=== PATIENT | female | born 1990 | race Caucasian/White ===

== ENCOUNTER 2019-05-21 11:52 | Observation (INO) | payer OTHER, SELFPAY ==
[2019-05-21] VITALS (12 sets, daily range): BP systolic 78–136; BP diastolic 38–78; PULSE 60–104; RESP 12–20; TEMP 36.6–36.8; O2SAT 95–100
--- NOTE | 2019-05-21 12:05 | W.ED.GENAD ---
Discharge Plan Discharge Details Chief Complaint: Abd Prob Attending Provider: Patricia Martinez Primary Care Provider: Citlali Clement ED Provider: Cheryl Lepe Medical Decision Making Roseanne June is a 28-year-old woman without reported history of major medical problems who presented to the emergency department with abdominal pain since last night. On exam patient is well and nontoxic appearing. Benign cardiopulmonary exam. Focal right lower quadrant tenderness to palpation with positive Rovsing sign. No peritoneal signs. Concern for possible appendicitis versus other. Plan for screening labs, CT abdomen/pelvis, UA, IV fluid hydration. Patient declines pain medication at this time. CT shows appendicitis per radiology and my read. Dr. Martinez of surgery consulted, will take patient to the operating room. Clinical impression: Appendicitis Disposition: [facility] inpatient Medical Records Medical records reviewed: Yes I reviewed the patient's medical records. Imaging Data Radiologic Study: Attestation: I personally reviewed and interpreted this imaging study as follows: Radiologist's impression: EXAM: CT ABDOMEN AND PELVIS W CLINICAL HISTORY: RLQ pain TECHNIQUE: Imaging Protocol: Axial computed tomography images with coronal and sagittal reformatted images were created and reviewed CONTRAST MATERIAL: Intravenous: Omnipaque 350 Contrast volume:100 mL contrast route:IV - Oral: No COMPARISON: No exams were available for comparison FINDINGS: ABDOMEN: Lung Bases: Normal where visualized. Liver: Normal density. No measurable mass. The portal, superior mesenteric and splenic veins are patent. Gallbladder and biliary tract: No radiodense calculus or dilation. Pancreas: Normal density, no abnormal calcifications or inflammatory process. Spleen: Normal. Kidneys: Normal size, contour and axis. No radiodense stones or obstructive uropathy. No masses seen. Adrenal glands: No masses seen. Abdominal Aorta: Abdominal portion non-dilated. PELVIS: Bladder: Symmetric distention, no gross wall thickening. Bowel: No obstruction or bowel wall thickening. The appendix is distended to 9 millimeters in diameter (series 5, image 582). It is fluid-filled. There is high-density material seen in the appendix which may represent an appendicolith. There is mild infiltration of the surrounding soft tissues. No focal fluid collection is seen to suggest an abscess. There is no pneumoperitoneum. Peritoneal cavity: No ascites, collection or mesenteric inflammatory response. Bones: Within normal limits. Reproductive organs: Within normal limits. Lymph nodes: Unremarkable. Impression: Findings consistent with acute appendicitis. No abscess or free air. Lab Data Lab results reviewed: Yes I reviewed the patient's lab results. Labs: Laboratory Tests Range/Units 05/21/19 05/21/19 05/21/19 12:15 12:30 12:30 WBC (4.4-10.8) k/cumm 6.38 RBC (4.00-5.20) m/cumm 4.74 Hgb (12.0-15.5) g/dL 13.6 Hct (36.0-46.0) % 40.9 MCV (80-95) fL 86.3 MCH (27.0-33.0) pg 28.7 MCHC (32.0-36.0) g/dL 33.3 RDW (11.7-14.6) % 13.8 Plt Count (130-400) x1000/uL 315 MPV (8.0-11.0) fL 11.5 H Immature Gran % 0.2 Neutrophils % 67.1 Lymphocytes % 22.1 Monocytes % 9.7 Eosinophils % 0.6 Basophils % 0.3 Absolute Neutrophils (1.2-6.7) k/cumm 4.28 Absolute Lymphocytes (1.2-3.4) k/cumm 1.41 Absolute Monocytes (0.11-0.7) k/cumm 0.62 Absolute Eosinophils (0.0-0.7) k/cumm 0.04 Absolute Basophils (0.0-0.2) k/cumm 0.02 Sodium (136-145) mmol/L 142 Potassium (3.5-5.1) mmol/L 3.2 L Chloride (98-107) mmol/L 106 Carbon Dioxide (21.0-32.0) mmol/L 27.0 Anion Gap (3-11) mmol/L 9.0 BUN (7-18) mg/dL 7 Creatinine (0.55-1.02) mg/dL 0.75 Estimated GFR/1.73 m2 (mL/min/1.73m2) >= 60.00 Glucose (74-106) mg/dL 85 Calcium (8.5-10.1) mg/dL 8.9 Total Bilirubin (0.2-1.0) mg/dL 0.3 AST (15-37) U/L 16 ALT (14-59) U/L 22 Alkaline Phosphatase (46-116) U/L 75 Total Protein (6.4-8.2) g/dL 7.3 Albumin (3.4-5.0) g/dL 3.5 Lipase (73-393) U/L 85 Beta HCG, Quant (1-3) mIU/mL < 1 L Urine Color (Yellow) Yellow Urine Clarity (Clear) Clear Urine pH (5-8) 7.0 Ur Specific [place] (1.005-1.025) 1.010 Urine Protein (Negative) mg/dL Negative Urine Ketones (Negative) mg/dL Negative Urine Blood (Negative) Trace-intact H Urine Nitrite (Negative) Negative Urine Bilirubin (Negative) Negative Urine Urobilinogen (Up TO 0.2) EU/dL 0.2 Ur Leukocyte Esterase (Negative) Negative Urine RBC (0-2) HPF 0-2 Urine WBC (0-5) HPF Negative Ur Epithelial Cells (Negative) HPF Many Urine Crystals (Negative) HPF Negative Urine Bacteria (Negative) HPF Few Urine Casts (Negative) LPF Negative Urine Mucus (Negative) Negative Ur Culture Indicated? No/sq. contamination Urine Glucose (Negative) mg/dL Negative HPI General Mode of arrival: ambulatory. Date/Time Provider Initiated Documentation: 05/21/19 12:05. Limitations to Documentation: no limitations. Information obtained by: patient, RN notes reviewed and old records reviewed. HPI Narrative: Roseanne June is a 28-year-old woman with out reported history of major medical problems presenting to the emergency department with abdominal pain. Patient reports that last night she had pain across her lower abdomen. Patient reports that pain has continued today, but seems improved this morning from last night. Patient reports that her pain now seems localized to the right lower quadrant. Patient reports nothing makes pain better or worse. She reports that she was nauseous earlier today, but has had no vomiting or diarrhea, denies fever, constipation, rash, shortness of breath, cough, numbness, weakness, rash, dysuria. Patient reports that she has had decreased appetite since onset of pain last night. Patient reports she has a history of 6 years ago, no other intra-abdominal surgery. Was previously well in her usual state of health. Last meal was last night, patient drank water at 7 AM this morning, no other p.o. intake today. Related Data Home Medications Medication Instructions Recorded Confirmed Unknown [No Known Home Meds] 07/17/14 07/17/14 Allergies Allergy/AdvReac Type Severity Reaction Status Date / Time No Known Allergies Allergy Unverified 05/21/19 11:57 General Stated Complaint: Abd Prob NAM: 3 Review of Systems Narrative: Constitutional: denies fevers Eyes: denies eye pain ENT: denies ear pain, dental pain, sore throat Cardiovascular: denies chest pain Respiratory: denies SOB, cough GI: denies vomiting, diarrhea, reports abdominal pain, nausea : denies flank pain, dysuria MSK: denies back pain, neck pain, arthralgias, myalgias Skin: denies rash Neuro: denies headaches, numbness, weakness PFSH Surgical History (Updated 05/21/19 @ 14:36 by Patricia Martinez MD) H/O tubal ligation (Chronic) S/P section (Acute) Social History Smoking/Tobacco Use Status: Current every day Tobacco Type: cigarettes Alcohol Intake: never Drug use: Never Substance use type: does not use Do you feel safe at home: Yes Do you feel safe in your relationship?: Yes Exam Narrative Exam Narrative: Constitutional: well and [id number], pleasant, conversing normally HENT: head atraumatic/normocephalic/normal inspection, mucous membranes moist Eyes: conjunctiva normal, sclera normal, pupils 3mm b/l Neck: no stridor, normal ROM, trachea midline Chest: normal inspection Resp: normal work of breathing, LCTAB Cardio: normal rate, normal rhythm, no murmur appreciated GI: abdomen soft, focal tenderness to palpation right lower quadrant with positive Rovsing's sign, no rebound, no guarding, non-distended Back: normal inspection, no rash Skin: warm, dry, normal color, no rash Neuro: alert, not altered, grossly non-focal, normal tone Ext: no edema, no posterior calf tenderness to palpation Psych: normal mood, normal affect, normal behavior Course Vital Signs Vital signs: Vital Signs Temperature 36.8 C 05/21/19 11:54 Pulse 104 H 05/21/19 11:54 Respiratory Rate 14 05/21/19 11:54 Blood Pressure 136/78 05/21/19 11:54 Pulse Oximetry 99 05/21/19 11:54 Temperature 36.8 C 05/21/19 11:54 Temperature Source Temporal Artery Scan 05/21/19 11:54 Pulse 104 H 05/21/19 11:54 Respiratory Rate 14 05/21/19 11:54 Respiratory Effort Non-Labored 05/21/19 11:56 Blood Pressure 136/78 05/21/19 11:54 Blood Pressure Position Sitting 05/21/19 11:54 Pulse Oximetry 99 05/21/19 11:54 Oxygen Delivery Method Room Air 05/21/19 11:54 Oxygen Flow Rate 0 05/21/19 11:54 Pain Level 3 05/21/19 11:54
[2019-05-21 12:18] LABS: Bilirubin Negative (Negative); Blood Trace-intact (Negative); Clarity Clear (Clear); Glucose Negative (Negative); Ketones Negative (Negative); Leukocyte Esterase Negative (Negative); Nitrite Negative (Negative); Urobilinogen 0.2 EU/dL (Up TO 0.2)
[2019-05-21] MEDS: Normal Saline 1,000 ML 1000 ML IV (12:24)
[2019-05-21 12:28] LABS: Bacteria Few HPF (Negative); C & S Indicated? No/Sq. Contamination; Casts Negative LPF (Negative); Crystals Negative HPF (Negative); Epithelial Cells Many HPF (Negative); Mucus Negative (Negative); RBC 0-2 HPF (0-2); WBC Negative HPF (0-5)
[2019-05-21 12:41] LABS: Abs Immature Grans 0.01 k/cumm (0.0-0.09); Absolute Basophil Count 0.02 k/cumm (0.0-0.2); Absolute Eosinophil Count 0.04 k/cumm (0.0-0.7); Absolute Lymphocyte Count 1.41 k/cumm (1.2-3.4); Absolute Monocyte Count 0.62 k/cumm (0.11-0.7); Absolute Neutrophil Count 4.28 k/cumm (1.2-6.7); Basophils % 0.3; Eosinophils % 0.6; HCT 40.9 % (36.0-46.0); HGB 13.6 g/dL (12.0-15.5); Immature Grans % 0.2; Lymphocytes % 22.1; Mean Corp. HGB Concentration 33.3 g/dL (32.0-36.0); Mean Corpuscular Hemoglobin 28.7 pg (27.0-33.0); Mean Corpuscular Volume 86.3 fL (80-95); Mean Platelet Volume 11.5 fL (8.0-11.0); Monocytes % 9.7; Neutrophils % 67.1; Platelet Count 315 x1000/uL (130-400); RBC 4.74 m/cumm (4.00-5.20); RBC Distribution Width 13.8 % (11.7-14.6); White Blood Cell Count 6.38 k/cumm (4.4-10.8)
[2019-05-21 13:03] LABS: ALT 22 U/L (14-59); AST 16 U/L (15-37); Albumin 3.5 g/dL (3.4-5.0); Alkaline Phosphatase 75 U/L (46-116); BUN 7 mg/dL (7-18); Bilirubin, Total 0.3 mg/dL (0.2-1.0); CREATININE 0.75 mg/dL (0.55-1.02); Calcium 8.9 mg/dL (8.5-10.1); Chloride 106 mmol/L (98-107); Glucose 85 mg/dL (74-106); Lipase 85 U/L (73-393); Potassium 3.2 mmol/L (3.5-5.1); Sodium 142 mmol/L (136-145); Total Protein 7.3 g/dL (6.4-8.2)
[2019-05-21 13:06] LABS: HCG Quant, Pregnancy < 1 mIU/mL (1-3)
--- NOTE | 2019-05-21 13:25 | DI.CT_ITS ---
EXAM: CT ABDOMEN AND PELVIS W CLINICAL HISTORY: RLQ pain TECHNIQUE: Imaging Protocol: Axial computed tomography images with coronal and sagittal reformatted images were created and reviewed CONTRAST MATERIAL: Intravenous: Omnipaque 350 Contrast volume:100 mL contrast route:IV - Oral: No COMPARISON: No exams were available for comparison FINDINGS: ABDOMEN: Lung Bases: Normal where visualized. Liver: Normal density. No measurable mass. The portal, superior mesenteric and splenic veins are peña nt. Gallbladder and biliary tract: No radiodense calculus or dilation. Pancreas: Normal density, no abnormal calcifications or inflammatory process. Spleen: Normal. Kidneys: Normal size, contour and axis. No radiodense stones or obstructive uropathy. No masses seen. Adrenal glands: No masses seen. Abdominal Aorta: Abdominal portion non-dilated. PELVIS: Bladder: Symmetric distention, no gross wall thickening. Bowel: No obstruction or bowel wall thickening. The appendix is distended to 9 millimeters in diamete r (series 5, image 582). It is fluid-filled. There is high-density material seen in the appendix whi ch may represent an appendicolith. There is mild infiltration of the surrounding soft tissues. No f ocal fluid collection is seen to suggest an abscess. There is no pneumoperitoneum. Peritoneal cavity: No ascites, collection or mesenteric inflammatory response. Bones: Within normal limits. Reproductive organs: Within normal limits. Lymph nodes: Unremarkable. Impression: Findings consistent with acute appendicitis. No abscess or free air. The findings were discussed with Dr. Cheryl Lepe of the Emergency Department on the date of the exami nation. DATA REPOSITORY: All CT scans at this facility are submitted to the National Radiology Data Registry (NRDR) Dose Index Registry (DIR) with the [employer] (ACR). RADIATION OPTIMIZATION: All CT scans at this facility use at least one of these dose optimization te chniques: automated exposure control; mA and/or kV adjustment per patient size (includes targeted exa ms where dose is matched to clinical indication); or iterative reconstruction.
[2019-05-21] MEDS: Omnipaque 350 MG/ML 100 ML BTL IV (13:43)
--- NOTE | 2019-05-21 14:32 | HPE_ITS ---
Date of service: 05/21/19 Time of Service: 14:33 Assessment and Plan Assessment and plan (1) Acute appendicitis: Status: Acute Assessment and plan: A\\28-year-old female with acute appendicitis on CT s can. She has had pain since 8:00 last night. She has had no nausea or vomiting and no diarrhea. P\\ Laparoscopic Appendectomy Risks, benefits and complications have been reviewed. Complications include but are not limited to bleeding, infection, injury to adjacent bowel, abscess formation, staple line leak, inability to do the procedure laparoscopically and adverse reaction to the medications. Questions were entertained and answered to their satisfaction and they wished to proceed. No guarantees were given or implied. Qualifiers: Acute appendicitis type: with localized peritonitis Appendicitis gangrene presence: unspecified whether gangrene present Appendicitis perforation presence: unspecified whether perforation present Appendicitis abscess presence: unspecified whether abscess present Qualified Code(s): K35.30 - Acute appendicitis with localized peritonitis, without perforation or gangrene History of Present Illness History of Present Illness Chief Complaint: RLQ pain Consults Consult date: 05/21/19 Requesting physician: Cheryl Lepe Narrative: Mrs June is a pleasant 28-year-old female who started having right lower quadrant abdominal pain yesterday around 8:00. The pain persisted this morning and so she came to the emergency department. Labs were within normal limits except for a slightly decreased potassium. CT scan of the abdomen and pelvis was done which showed a slightly dilated appendix at 9 mm. Mild fat stranding was identified. The patient's pain is actually better right now than when she came to the emergency department. She denies any nausea or vomiting. She has not had any diarrhea. There is not been other people sick in the family. She is had a and a Laparoscopic tubal ligation in the past. She denies chest pain, shortness of breath, history of asthma or cardiac disease. Review of Systems Constitutional Constitutional: Denies fever(s), Denies weakness and Denies weight loss Eyes Eyes: Reports system reviewed and no additional complaints, except as docu and Denies change in vision ENT Ears, Nose, Mouth, and Throat: Denies change in voice and Denies hoarseness Cardiovascular Cardiovascular: Denies chest pain, Denies chest pain at rest, Denies rapid heart rate, Denies dyspnea and Denies dyspnea on exertion Respiratory Respiratory: Denies chest congestion, Denies cough, Denies dyspnea and Denies dyspnea on exertion Gastrointestinal Gastrointestinal: Reports as per HPI Genitourinary Genitourinary: Denies hematuria and Denies dysuria Musculoskeletal Musculoskeletal: Reports system reviewed and no additional complaints, except as docu Integumentary/Breasts Skin/Breast: Reports system reviewed and no additional complaints, except as docu Neurologic Neurologic: Reports system reviewed and no additional complaints, except as docu and Denies weakness Psychiatric Psychiatric: Reports system reviewed and no additional complaints, except as docu Endocrine Endocrine: Reports system reviewed and no additional complaints, except as docu Hematologic/Lymphatic Hematologic/Lymphatic: Denies easy bleeding, Denies easy bruising and Denies lymphadenopathy [facility] Surgical History (Updated 05/21/19 @ 14:36 by Patricia Martinez MD) H/O tubal ligation (Chronic) S/P section (Acute) Social History (Updated 05/21/19 @ 14:36 by Patricia Martinez MD) Smoking/Tobacco Use Status: Current every day Tobacco Type: cigarettes Alcohol Intake: never Drug use: Never Substance use type: does not use Do you feel safe at home: Yes Do you feel safe in your relationship?: Yes Meds Home Medications and Allergies Home Medications Medication Instructions Recorded Confirmed Type Unknown [No Known Home Meds] 07/17/14 07/17/14 History Allergies Allergy/AdvReac Type Severity Reaction Status Date / Time No Known Allergies Allergy Unverified 05/21/19 11:57 Exam Const General: cooperative, comfortable and no acute distress Orientation: alert and oriented x3 HENMT Head: normocephalic and atraumatic Resp Effort & Inspection: normal respiratory effort Auscultation: clear to auscultation bilaterally Cardio Rate: regular rate Rhythm: regular rhythm Heart Sounds: no gallops, no murmurs and no rubs GI Inspection: normal to inspection and incision Palpation: soft, no hepatosplenomegaly and tender (mild RLQ) Auscultation: normal bowel sounds Results Labs Result diagrams: 05/21/19 12:30 05/21/19 12:30 Labs: Laboratory Results - last 24 hr 05/21/19 05/21/19 05/21/19 12:15 12:30 12:30 WBC 6.38 RBC 4.74 Hgb 13.6 Hct 40.9 MCV 86.3 MCH 28.7 MCHC 33.3 RDW 13.8 Plt Count 315 MPV 11.5 H Immature Gran % 0.2 Neutrophils % 67.1 Lymphocytes % 22.1 Monocytes % 9.7 Eosinophils % 0.6 Basophils % 0.3 Absolute Neutrophils 4.28 Absolute Lymphocytes 1.41 Absolute Monocytes 0.62 Absolute Eosinophils 0.04 Absolute Basophils 0.02 Sodium 142 Potassium 3.2 L Chloride 106 Carbon Dioxide 27.0 Anion Gap 9.0 BUN 7 Creatinine 0.75 Estimated GFR/1.73 m2 >= 60.00 Glucose 85 Calcium 8.9 Total Bilirubin 0.3 AST 16 ALT 22 Alkaline Phosphatase 75 Total Protein 7.3 Albumin 3.5 Lipase 85 Beta HCG, Quant < 1 L Urine Color Yellow Urine Clarity Clear Urine pH 7.0 Ur Specific [place] 1.010 Urine Protein Negative Urine Ketones Negative Urine Blood Trace-intact H Urine Nitrite Negative Urine Bilirubin Negative Urine Urobilinogen 0.2 Ur Leukocyte Esterase Negative Urine RBC 0-2 Urine WBC Negative Ur Epithelial Cells Many Urine Crystals Negative Urine Bacteria Few Urine Casts Negative Urine Mucus Negative Ur Culture Indicated? No/sq. contamination Urine Glucose Negative Last Vital Signs Temp 98.2 F 05/21/19 13:27 Pulse 86 05/21/19 13:44 Resp 16 05/21/19 13:44 BP 120/65 05/21/19 13:44 Pulse Ox 100 05/21/19 13:44
[2019-05-21] MEDS: Lactated Ringers 1,000 ML 30 ML IV (14:57)
[2019-05-21] MEDS: PIPERACILLIN/TAZO 3.375 GM in Normal Saline 50 ML IVPB (15:03)
[2019-05-21] MEDS: Lidocaine 1% Multi-Dose 50 ML VIAL (15:15)
[2019-05-21] MEDS: Bupivacaine 0.5% Pres-Free 30 ML VIAL (15:15)
--- NOTE | 2019-05-21 15:22 | APP_PTH ---
PATIENT: ARIE NAZARIO LOC: [place]#:[id number] AGE/SX: 28/F ROOM: 230 RE05/21/[address]: Patricia Martinez MD : 1990 BED: A DIS: 05/22/2019 SPEC #: [id number] RECD: 05/21/19 18:04 STATUS: LINDSE[place] REQ #: [id number] SIA: 05/21/19 15:[address]: Patricia Martinez DEPT: Surgical Specimen RECD BY: Sandra Arndt ENTERED: 05/21/19 18:04 SP TYPE: Appendix OTHR DR: Citlali Clement MD Tissues: 1 - APPENDIX NOT INCIDENTAL Procedures: GROSS AND MICRO LEVEL 3 Comments: [id number]
--- NOTE | 2019-05-21 15:40 | ROE_ITS ---
Date of service: 05/21/19 Time of Service: 15:40 Operative Note Operative Note DATE OF PROCEDURE: 05/21/19 PRE-OP DIAGNOSIS: Acute Appendicitis POST-OP DIAGNOSIS: same PROCEDURE: Laparoscopic Appendectomy SURGEON: Patricia Martinez COLLAR FELLER: Aimee Perez ANESTHESIA: GETA (ASA 2/ Rocio Roman CRNA) ESTIMATED BLOOD LOSS: 25 PATHOLOGY: other (Appendix) COMPLICATIONS: None Patient was transported to: PACU Patient's condition: stable Indications: Mrs. June was seen in the ER for abdominal pain. Labs were unremarkable. CT scan revealed mildly dilated appendix and some minimal inflammation. Laparoscopic Appendectomy was recommended. Risks, benefits and complications have been reviewed. Complications include but are not limited to bleeding, infection, injury to adjacent bowel, abscess formation, staple line leak, inability to do the procedure laparoscopically and adverse reaction to the medications. Questions were entertained and answered to their satisfaction and they wished to proceed. No guarantees were given or implied. Procedure Description: After informed consent was obtained the patient was taken to the operating room placed in the supine position SCDs were applied as well as monitors. A timeout was done. The patient was then placed under general anesthesia and intubated without any difficulty. Next a Pressley catheter was placed in a standard surgical fashion. At this point the abdomen was prepped and draped in a sterile surgical fashion with chlorhexidine. A second timeout was done and the patient's name, date of , operation to be performed, DVT prophylaxis, antibiotic given, and fire risk was assessed. 1 % lidocaine was mixed 50-50 with 0.5% Marcaine with epinephrine. The mixture was injected into the dermis just above the umbilicus. A small 5 mm incision was made with an 11 blade. The fascia was grasped with cockers. A small incision was made in the fascia and then using a Visiport a 5 mm port was placed under direct visualization into the abdomen. The abdomen was insufflated. Local anesthetic was then injected just above the pubic symphysis along her scar. A small 5 mm incision was made with an 11 blade and another 5 mm port was placed under direct visualization into the abdomen. The local anesthetic was then injected in the left lower quadrant area and a 11 mm incision was made with an 11 blade. A 11 mm port was then placed under direct visualization. The patient's bed was then turned to the left head down allowing me to sweep of the small bowel out of the right lower quadrant. The cecum was gently grasped and the appendix was identified. The tip of the appendix was noted to be dilated and inflammad. The appendix was grasped at the tip with a- traumatic instrument and pulled up slightly allowing me to visualize the junction with the cecum. Using the Ashley dissector a small window was made in the meso-appendix. Using a Ligasure the meso-appendix was transected. Using a laparoscopic straight stapler the appendix was transected at the junction with the cecum. The appendix was placed into an Endo Catch bag and removed through the 11 mm port site. The port was placed back into the abdomen and the staple line was identified. No bleeding was noted. The transected mesentery was identified and no bleeding was noted. Next 20 cc of the local anesthetic was injected above the liver bed to hopefully help with postoperative shoulder pain. The two 5 mm ports were then removed under direct visualization and no bleeding was noted from the fascia. The insufflation was stopped and the 11 mm port was removed. The 11 mm port site fascia was closed with a 0 Vicryl [id number] suture. The skin was then closed with 4-0 Vicryl. The skin was cleaned and dried and skin affix was applied. The patient was woken up, extubated and taken back to recovery room in stable condition. There were no immediate complications. Sponge instrument needle counts were correct at the end of the case x2.
[2019-05-21] MEDS: Normal Saline 1,000 ML 75 ML IV (17:05)
--- NOTE | 2019-05-21 17:27 | NUR.NOTE ---
Nursing Note: Patient transferred from PACU via stretcher at 1649. Patient transferred to room bed via hover mat. VSS. See worklist. Regular HR. Lungs clear. Hypoactive bowel sounds. Normal pedal pulses. 3 abdominal incisions noted. Skin appears to be healing well. Ice pack over abdomen on arrival. Patient reports 2/10 discomfort regarding upset stomach. Ondasentron given in PACU with relief. Patient requests gingerale. Alert and oriented. Patient reports I just feel tired.
[2019-05-22] MEDS: Normal Saline 1,000 ML 75 ML IV (05:38)
[2019-05-22] MEDS: Acetaminophen 325 MG TAB 650 MG PO (05:45)
[2019-05-22 08:00] VITALS: BP 123/69; PULSE 64; RESP 16; TEMP 36.5; O2SAT 100
--- NOTE | 2019-05-22 08:07 | PGE_ITS ---
Documented by User: OLGA Mcintyre 05/22/19 08:11 Date of Service Date of service: 05/22/19 Time of Service: 08:07 Assessment and Plan Assessment and plan (1) Acute appendicitis: Status: Acute Assessment and plan: POD #1 s/p Lap. Appendectomy Tolerating regular diet. (+) Flatus, No BM She reports mild burning with urination. discussed that the antibiotics given to tx her appendicitis should also cover UTI. If these symptoms continue, then will order UA. Disposition- D/C home later today. Qualifiers: Acute appendicitis type: with localized peritonitis Appendicitis abscess presence: unspecified whether abscess present Appendicitis gangrene presence: unspecified whether gangrene present Appendicitis perforation presence: unspecified whether perforation present Qualified Code(s): K35.30 - Acute appendicitis with localized peritonitis, without perforation or gangrene Subjective Subjective Interval history since last seen: Patient reports that she feels good this morning. (+) Flatus. No nausea or vomiting. She tolerated regular diet well over night. Exam Const General: cooperative, healthy appearing and comfortable Orientation: alert Resp Effort & Inspection: normal respiratory effort, no audible wheezes and no cough GI Inspection: normal to inspection, non-distended and incision (covered with skin a fix. ) Palpation: soft, no guarding and nontender Auscultation: normal bowel sounds Objective Objective Clinical Data: Abnormal lab results 05/21/19 05/21/19 05/21/19 Range/Units 12:15 12:30 12:30 MPV 11.5 H (8.0-11.0) fL Potassium 3.2 L (3.5-5.1) mmol/L Beta HCG, Quant < 1 L (1-3) mIU/mL Urine Blood Trace-intact H (Negative) Vital Signs Temperature 36.6 C 05/21/19 23:30 Temperature Source Tympanic 05/21/19 23:30 Pulse 61 05/21/19 23:30 Pulse Rhythm Regular 05/22/19 04:38 Pulse Strength Normal 05/21/19 13:44 Respiratory Rate 20 05/21/19 23:30 Respiratory Effort Non-Labored 05/22/19 04:38 Respiratory Depth Normal 05/22/19 04:38 Respiratory Pattern Normal 05/22/19 04:38 Blood Pressure 95/58 L 05/21/19 23:30 Blood Pressure Mean 83 05/21/19 13:44 Blood Pressure Position Sitting 05/21/19 11:54 Pulse Oximetry 99 05/21/19 23:30 Respiratory End-tidal CO2 33 05/21/19 16:33 Oxygen Delivery Method Room Air 05/21/19 23:30 Oxygen Flow Rate 0 05/21/19 23:30 Pain Level 1 05/22/19 05:45 Intake & Output 05/21/19 05/22/19 05/22/19 18:59 06:59 18:59 Intake Total 1773 / 2954.25 1181.25 / 2954.25 Output Total Balance 1763 / 2944.25 1181.25 / 2944.25 Weight 66.224 kg Intake: IV 1773 / 2714.25 941.25 / 2714.25 Oral 240 / 240 Output: Urine Other: Urine Color Yellow Urine Appearance Clear Clear Comment voids in toilet. Urine misses the hat. Urine not assessed at this time. Voiding ad martín. No complaints Emesis Description None Voiding Methods Toilet Toilet Laboratory Results WBC 6.38 k/cumm (4.4-10.8) 05/21/19 12:30 RBC 4.74 m/cumm (4.00-5.20) 05/21/19 12:30 Hgb 13.6 g/dL (12.0-15.5) 05/21/19 12:30 Hct 40.9 % (36.0-46.0) 05/21/19 12:30 MCV 86.3 fL (80-95) 05/21/19 12:30 MCH 28.7 pg (27.0-33.0) 05/21/19 12:30 MCHC 33.3 g/dL (32.0-36.0) 05/21/19 12:30 RDW 13.8 % (11.7-14.6) 05/21/19 12:30 Plt Count 315 x1000/uL (130-400) 05/21/19 12:30 MPV 11.5 fL (8.0-11.0) H 05/21/19 12:30 Immature Gran % 0.2 05/21/19 12:30 Neutrophils % 67.1 05/21/19 12:30 Lymphocytes % 22.1 05/21/19 12:30 Monocytes % 9.7 05/21/19 12:30 Eosinophils % 0.6 05/21/19 12:30 Basophils % 0.3 05/21/19 12:30 Absolute Neutrophils 4.28 k/cumm (1.2-6.7) 05/21/19 12:30 Absolute Lymphocytes 1.41 k/cumm (1.2-3.4) 05/21/19 12:30 Absolute Monocytes 0.62 k/cumm (0.11-0.7) 05/21/19 12:30 Absolute Eosinophils 0.04 k/cumm (0.0-0.7) 05/21/19 12:30 Absolute Basophils 0.02 k/cumm (0.0-0.2) 05/21/19 12:30 Sodium 142 mmol/L (136-145) 05/21/19 12:30 Potassium 3.2 mmol/L (3.5-5.1) L 05/21/19 12:30 Chloride 106 mmol/L (98-107) 05/21/19 12:30 Carbon Dioxide 27.0 mmol/L (21.0-32.0) 05/21/19 12:30 Anion Gap 9.0 mmol/L (3-11) 05/21/19 12:30 BUN 7 mg/dL (7-18) 05/21/19 12:30 Creatinine 0.75 mg/dL (0.55-1.02) 05/21/19 12:30 Estimated GFR/1.73 m2 >= 60.00 (mL/min/1.73m2) 05/21/19 12:30 Glucose 85 mg/dL (74-106) 05/21/19 12:30 Calcium 8.9 mg/dL (8.5-10.1) 05/21/19 12:30 Total Bilirubin 0.3 mg/dL (0.2-1.0) 05/21/19 12:30 AST 16 U/L (15-37) 05/21/19 12:30 ALT 22 U/L (14-59) 05/21/19 12:30 Alkaline Phosphatase 75 U/L (46-116) 05/21/19 12:30 Total Protein 7.3 g/dL (6.4-8.2) 05/21/19 12:30 Albumin 3.5 g/dL (3.4-5.0) 05/21/19 12:30 Lipase 85 U/L (73-393) 05/21/19 12:30 Beta HCG, Quant < 1 mIU/mL (1-3) L 05/21/19 12:30 Urine Color Yellow (Yellow) 05/21/19 12:15 Urine Clarity Clear (Clear) 05/21/19 12:15 Urine pH 7.0 (5-8) 05/21/19 12:15 Ur Specific [place] 1.010 (1.005-1.025) 05/21/19 12:15 Urine Protein Negative mg/dL (Negative) 05/21/19 12:15 Urine Ketones Negative mg/dL (Negative) 05/21/19 12:15 Urine Blood Trace-intact (Negative) H 05/21/19 12:15 Urine Nitrite Negative (Negative) 05/21/19 12:15 Urine Bilirubin Negative (Negative) 05/21/19 12:15 Urine Urobilinogen 0.2 EU/dL (Up TO 0.2) 05/21/19 12:15 Ur Leukocyte Esterase Negative (Negative) 05/21/19 12:15 Urine RBC 0-2 HPF (0-2) 05/21/19 12:15 Urine WBC Negative HPF (0-5) 05/21/19 12:15 Ur Epithelial Cells Many HPF (Negative) 05/21/19 12:15 Urine Crystals Negative HPF (Negative) 05/21/19 12:15 Urine Bacteria Few HPF (Negative) 05/21/19 12:15 Urine Casts Negative LPF (Negative) 05/21/19 12:15 Urine Mucus Negative (Negative) 05/21/19 12:15 Ur Culture Indicated? No/sq. contamination 05/21/19 12:15 Urine Glucose Negative mg/dL (Negative) 05/21/19 12:15 Documented by User: Patricia Martinez MD 05/22/19 08:20
--- NOTE | 2019-05-22 08:08 | DSE_ITS ---
Date of service: 05/22/19 Time of Service: 08:08 DS: Diagnosis Discharge Diagnosis (1) Acute appendicitis: Status: Acute Discharge Plan Disposition Patient Disposition: HOME Condition: Improving Discharge Details Chief Complaint: Abd Prob Reason For Visit: ACUTE APPENDICITIS Admit Date/Time: 05/21/19 15:31 Admit Provider: Patricia Martinez Attending Provider: Patricia Martinez Primary Care Provider: Citlali Clement ED Provider: Cheryl Lepe Hospital Course Hospital Course: Mrs. June is a pleasant 28 year old who was seen in the ER on 05/21/[address] revealed acute appendicitis. She underwent a Laparoscopic appendectomy, uncomplicated. She did well over night. She was tolerating a regular diet and taking only tylenol for pain. Patient is discharged home to follow up in [address] Martinez Home Meds and New Rx's Prescriptions: New acetaminophen [Tylenol] 325 mg Tablet 650 mg PO Q6H PRN PRN (Reason: Pain) Qty: 30 RF: 0 ibuprofen 600 mg tablet 600 mg PO QID PRN (Reason: pain) Qty: 30 RF: 0 Discharge Instructions Additional Instructions: Activity at Home after surgery: 1. Make sure you walk outside at least 4 times per day 2. You should be able to climb a flight of stairs 3. No driving while in pain or taking pain medications 4. No strenuous activity or heavy lifting for 2 weeks (laparoscopic surgery) Diet, Nutrition, & wound healin. Avoid alcohol until after you are recovered from your surgery 2. Make sure to eat plenty of lean protein (meat, fish, eggs, cottage cheese, beans) 3. Eat a variety of fruits and vegetables. Eat plenty of high fiber foods to avoid constipation. 4. Drink plenty of liquids to stay hydrated and avoid constipation Pain Medications: 1. Alternate Tylenol 650 mg every 6 hours and Ibuprofen 600 mg every 6 hours as needed for pain 2. If a narcotic has been prescribed take as directed only for breakthrough pain For Constipation: 1. Take Milk of Magnesia or MiraLax as needed for constipation Other: 1. You may shower daily. Do not scrub the incisions 2. Do not soak the incisions for 1 week 3. You may alternate ice and heat as needed for pain and swelling Wound Care: 1. Keep the incisions clean and dry Please call our office if you develop: 1. Fevers >101.5 2. Nausea or Vomiting 3. Worsening pain 4. Redness and thick discharge from the wounds If after hours please call the Hospital at and ask to speak to the on-call surgeon Referrals: Patricia Martinez MD [ [facility] STAFF PHYSICIAN] - 06/01/19 11:00 am Activity:: No lifting, pulling or pushing >20 lb x 2 weeks Equipment/Supplies:: No Equipment Needed Diet:: As Tolerated Discharge Orders Discharge Orders: Discharge Order (Routine); Ordered 05/22/19 Ordered By: Patricia Martinez DS: Summary Status at Discharge Functional status at discharge: independent ambulation Overall status at discharge: patient is back to baseline Mental Status: mental status grossly normal Speech and Movement: speech and movement normal Mood: congruent mood Affect: normal affect Exam Resp Effort & Inspection: normal respiratory effort Auscultation: clear to auscultation bilaterally Cardio Rate: regular rate Rhythm: regular rhythm Heart Sounds: no gallops, no murmurs and no rubs GI Inspection: normal to inspection and incision (c/d/i) Palpation: soft and no hepatosplenomegaly Auscultation: normal bowel sounds Psych Mental Status: mental status grossly normal Speech and Movement: speech and movement normal Mood: congruent mood Affect: normal affect DS: Data Vitals/I&O Vitals and I&O: Vital Signs Temperature 97.9 F 05/21/19 23:30 Temperature Source Tympanic 05/21/19 23:30 Pulse 61 05/21/19 23:30 Pulse Rhythm Regular 05/22/19 04:38 Pulse Strength Normal 05/21/19 13:44 Respiratory Rate 20 05/21/19 23:30 Respiratory Effort Non-Labored 05/22/19 04:38 Respiratory Depth Normal 05/22/19 04:38 Respiratory Pattern Normal 05/22/19 04:38 Blood Pressure 95/58 L 05/21/19 23:30 Blood Pressure Mean 83 05/21/19 13:44 Blood Pressure Position Sitting 05/21/19 11:54 Pulse Oximetry 99 05/21/19 23:30 Respiratory End-tidal CO2 33 05/21/19 16:33 Oxygen Delivery Method Room Air 05/21/19 23:30 Oxygen Flow Rate 0 05/21/19 23:30 Pain Level 1 05/22/19 05:45 Intake & Output 05/21/19 05/21/19 05/22/19 11:59 23:59 11:59 Intake Total 2012 941.25 / 941.25 Output Total Balance 2002 941.25 / 941.25 Weight 145 lb 15.983 oz Intake: IV 1773 / 1773 941.25 / 941.25 Oral 240 / 240 Output: Urine Other: Urine Color Yellow Urine Appearance Clear Clear Comment voids in toilet. Urine misses the hat. Urine not assessed at this time. Voiding ad martín. No complaints Emesis Description None Voiding Methods Toilet Toilet Data Completed and Pending Labs on day of discharge: Labs from last 24 hours 05/21/19 05/21/19 05/21/19 12:30 12:30 12:15 WBC 6.38 RBC 4.74 Hgb 13.6 Hct 40.9 MCV 86.3 MCH 28.7 MCHC 33.3 RDW 13.8 Plt Count 315 MPV 11.5 H Immature Gran % 0.2 Neutrophils % 67.1 Lymphocytes % 22.1 Monocytes % 9.7 Eosinophils % 0.6 Basophils % 0.3 Absolute Neutrophils 4.28 Absolute Lymphocytes 1.41 Absolute Monocytes 0.62 Absolute Eosinophils 0.04 Absolute Basophils 0.02 Sodium 142 Potassium 3.2 L Chloride 106 Carbon Dioxide 27.0 Anion Gap 9.0 BUN 7 Creatinine 0.75 Estimated GFR/1.73 m2 >= 60.00 Glucose 85 Calcium 8.9 Total Bilirubin 0.3 AST 16 ALT 22 Alkaline Phosphatase 75 Total Protein 7.3 Albumin 3.5 Lipase 85 Beta HCG, Quant < 1 L Urine Color Yellow Urine Clarity Clear Urine pH 7.0 Ur Specific [place] 1.010 Urine Protein Negative Urine Ketones Negative Urine Blood Trace-intact H Urine Nitrite Negative Urine Bilirubin Negative Urine Urobilinogen 0.2 Ur Leukocyte Esterase Negative Urine RBC 0-2 Urine WBC Negative Ur Epithelial Cells Many Urine Crystals Negative Urine Bacteria Few Urine Casts Negative Urine Mucus Negative Ur Culture Indicated? No/sq. contamination Urine Glucose Negative PFSH Surgical History H/O tubal ligation (Chronic) S/P section (Acute) Social History Smoking/Tobacco Use Status: Current every day Tobacco Type: cigarettes Alcohol Intake: never Drug use: Never Substance use type: does not use Do you feel safe at home: Yes Do you feel safe in your relationship?: Yes
== END 2019-05-22 09:54 | disposition home or self-care (01) ==
LOC: ER 14:31 → SUR 14:46 → MS 16:49
PROVIDERS: Admitting Provider Surgery; Emergency Provider Student in an Organized Health Care Education/Training Program; PCP Family Medicine; Visit Provider Surgery
PROC: 0DTJ4ZZ Resection of Appendix, Percutaneous Endoscopic Approach (ICD-10-PCS; CPT 44970; principal; 2019-05-21 14:45)
DX: K35.890 Other acute appendicitis without perforation or gangrene (principal)
CPT/HCPCS: 44970; 36415; 80053; 83690; 96360; 96361; 99223; 99285; NC; 74177; 81003; 81015; 84702; 85025; 88304; G0378; J1100; J2250; J2405; J2543; J3490